=== PATIENT | female | born 1970 | race Caucasian/White ===

== ENCOUNTER 2023-12-09 15:02 | Emergency (ER) | payer SELFPAY ==
[2023-12-09] VITALS (9 sets, daily range): BP systolic 113–175; BP diastolic 61–105; PULSE 74–101; RESP 16–18; TEMP 36.6; O2SAT 95–99; BMI 26.6
--- NOTE | 2023-12-09 15:23 | [facility].EDGENADL ---
Discharge Plan Disposition Patient Disposition: Home, Self-Care Prescriptions Prescriptions: New prochlorperazine maleate [Compazine] 10 mg tablet 10 mg PO Q6H PRN (Reason: nausea and vomiting) 1 Days Qty: 20 0RF Referrals Follow up/Referrals: Eliseo Chandler [Primary Care Provider] - See instructions Activity Restrictions/Add. Instructions Additional Instructions/Restrictions: Call your family doctor to establish care for this visit to the emergency department and schedule follow-up within 48 hours to ensure improvement. If you have any worsening of your condition or any other concerning signs or symptoms, return to the emergency department or your primary care doctor for further evaluation. For migraine, 1000 mg acetaminophen, 600 mg ibuprofen, 10 mg Compazine, 25 mg Benadryl and drink plenty of fluids with these. If you continue to have symptoms or any other concerning symptoms, return to the ER for further evaluation. Clinical Impressions Clinical Impression: Complicated migraine Instructions Patient Instructions: DI for Numbness/Tingling Discharge ED Provider: Adama Kulkarni General Adult HPI General Chief complaint: Recheck/Abnormal Lab/Rx Stated complaint: tingling/numbness right face down to arm Time Seen by Provider: 12/09/23 15:06 Mode of Arrival: Ambulatory Source of Information: Patient Limitations: No Limitations Description of Symptoms (Recalled from ER Triage Doc. by RN): Patient reports on and off headaches and right sided facial numbness for 2 days. Reports that her blood pressure has been elevated as well. History of Present Illness HPI narrative: 53-year-old female history of migraines presenting with right-sided facial numbness. Patient states that she used to get migraines frequently, changed jobs, does not get them anymore. She states she started getting this headache when she was at work a couple days prior to this visit. Since that time, it has been intermittent, but today is worse. Moderate to severe headache that is bandlike, all around, not associated with vision changes, chest pain, shortness of breath, vomiting, fevers or chills, neck stiffness, or any other concerns. She started having facial numbness that gets worse as her headaches get worse on the right, she believes this may be related to her blood pressure that has been elevated recently. Related Data Previous Rx's Medication Instructions Recorded prochlorperazine maleate 10 mg 10 mg PO Q6H PRN nausea and 12/09/23 tablet (Compazine) vomiting 24 hours #20 tabs Allergies Allergy/AdvReac Type Severity Reaction Status Date / Time No Known Allergies Allergy Verified 12/09/23 15:13 [facility] Disclaimer: The information contained in this section may have been updated after the patient was seen, as this information can be updated by other users. Social History Smoking Status: Never smoker alcohol intake: never current occupational status: employed Travel in the last 8 weeks: None ROS Obtained: Yes All systems reviewed & no additional complaints except as documented Physical Exam General General appearance: alert and in no apparent distress Head Head exam: atraumatic and normocephalic Eye Eye exam: Present normal appearance, PERRL and EOMI ENT ENT exam: Present mucous membranes moist Neck Neck exam: Present normal inspection, full ROM and trachea midline Respiratory Respiratory exam: Absent respiratory distress, wheezes, stridor, accessory muscle use or prolonged expiratory phase Cardiovascular Cardiovascular exam: Present normal rhythm Abdominal Exam Abdominal exam: Present soft; Absent distention, tenderness, guarding, rebound or rigidity Extremities Exam Extremities exam: Absent edema Neurological Exam Neurological exam: Present alert, oriented X3, CN II-XII intact and normal gait; Absent motor sensory deficit Skin Skin exam: Present warm and dry; Absent diaphoresis or erythema Medical Decision Making Medical Records Medical records reviewed: Yes I reviewed the patient's medical records. Tom Inquiry Pt receiving controlled substance: No Tom was queried for this patient: No Vital Signs: 12/09/23 15:04 12/09/23 15:08 12/09/23 15:20 Temperature 97.9 F Temperature Source Oral Pulse Rate 101 H 89 Pulse Rate [Radial] 100 H Respiratory Rate 16 Blood Pressure 164/105 H 175/94 H Blood Pressure [Right Arm] 164/105 H Blood Pressure Mean 117 119 Blood Pressure Mean [Right Arm] 124 Blood Pressure Source [Right Arm] Automatic Cuff Blood Pressure Position [Right Arm] Sitting 02 Sat by Pulse Oximetry 99 96 97 Oxygen Delivery Method Room Air 12/09/23 15:40 12/09/23 16:00 12/09/23 16:30 Temperature Temperature Source Pulse Rate 87 85 84 Pulse Rate [Radial] Respiratory Rate Blood Pressure 138/77 128/64 116/67 Blood Pressure [Right Arm] Blood Pressure Mean Blood Pressure Mean [Right Arm] Blood Pressure Source [Right Arm] Blood Pressure Position [Right Arm] 02 Sat by Pulse Oximetry 95 97 96 Oxygen Delivery Method Room Air Room Air 12/09/23 16:40 12/09/23 17:01 12/09/23 17:59 Temperature 97.9 F Temperature Source Pulse Rate 74 80 86 Pulse Rate [Radial] Respiratory Rate 18 Blood Pressure 117/61 113/66 121/66 Blood Pressure [Right Arm] Blood Pressure Mean Blood Pressure Mean [Right Arm] Blood Pressure Source [Right Arm] Blood Pressure Position [Right Arm] 02 Sat by Pulse Oximetry 96 95 Oxygen Delivery Method Room Air Room Air Room Air Lab Data Lab Results 12/09/23 15:25: WBC 8.0, RBC 4.49, Hgb 14.0, Hct 41.1, MCV 91.5, MCH 31.1, MCHC 34.0, RDW 14.2, Plt Count 213, MPV 8.3, Neut % (Auto) 63.6, Lymph % (Auto) 29.3, [place] % (Auto) 4.4, Eos % (Auto) 2.2, Baso % (Auto) 0.5, Neut # (Auto) 5.1, Lymph # (Auto) 2.3, [place] # (Auto) 0.4, Eos # (Auto) 0.2, Baso # (Auto) 0.0, ESR 17, Sodium 144, Potassium 3.7, Chloride 106, Carbon Dioxide 31 H, Anion Gap 10.7, BUN 8, Creatinine 0.80, Estimated Creat Clear 98, Estimated GFR 76, Est GFR ( Amer) 92, Glucose 91, Calcium 8.9, Magnesium 2.1, Total Bilirubin 0.5, AST 39 H, ALT 28, Alkaline Phosphatase 90, Troponin I < 0.01, C-Reactive Protein 8.4 H, Total Protein 7.4, Albumin 4.6, Globulin 2.8, Albumin/Globulin Ratio 1.6 12/09/23 15:25 12/09/23 15:25 Orders (Tests/Meds): ED MEDICATIONS Discontinued Medications Generic Name Dose Route Start Last Admin Trade Name Freq PRN Reason Stop Dose Admin Acetaminophen 1,000 mg 12/09/23 15:20 12/09/23 15:34 Acetaminophen 500mg Tab PO 12/09/23 15:21 1,000 mg ONCE ONE Administration Dexamethasone Sodium Phosphate 10 mg 12/09/23 15:20 12/09/23 15:35 Dexamethasone 4mg/Ml 1ml Vial IV 12/09/23 15:21 10 mg ONCE ONE Administration Diphenhydramine HCl 25 mg 12/09/23 15:20 12/09/23 15:35 Diphenhydramine 50mg/Ml Vial IV 12/09/23 15:21 25 mg ONCE ONE Administration Sodium Chloride 1,000 mls @ 999 mls/hr 12/09/23 15:20 12/09/23 15:34 Sod Chlor 0.9% 1000ml Bag IV 12/09/23 16:20 999 mls/hr .Q1H1M ONE Administration Ketorolac Tromethamine 15 mg 12/09/23 15:20 12/09/23 15:36 Ketorolac 30mg/Ml Vial IV 12/09/23 15:21 15 mg ONCE ONE Administration Prochlorperazine Edisylate 10 mg 12/09/23 15:20 12/09/23 15:36 Prochlorperazine 10mg/2ml Vial IV 12/09/23 15:21 10 mg ONCE ONE Administration ORDERS Category Date Time Status CRP [C-Reactive Protein] Stat Lab 12/09/23 15:25 Completed Complete Blood Count Auto Diff Stat Lab 12/09/23 15:25 Completed Comprehensive Metabolic Panel Stat Lab 12/09/23 15:25 Completed ESR [Erythrocyte Sedimentation Rate] Stat Lab 12/09/23 15:25 Completed Magnesium Stat Lab 12/09/23 15:25 Completed Troponin I Q3H Lab 12/09/23 21:30 Ordered Troponin I Stat Lab 12/09/23 15:25 Completed ECG initial [place] Routine Y 12/09/23 15:46 Completed Medical Decision Narrative: 53-year-old female history of migraines presenting with right-sided facial numbness. Patient states that she used to get migraines frequently, changed jobs, does not get them anymore. She states she started getting this headache when she was at work a couple days prior to this visit. Since that time, it has been intermittent, but today is worse. Moderate to severe headache that is bandlike, all around, not associated with vision changes, chest pain, shortness of breath, vomiting, fevers or chills, neck stiffness, or any other concerns. She started having facial numbness that gets worse as her headaches get worse on the right, she believes this may be related to her blood pressure that has been elevated recently. History was obtained via conversation with patient. On arrival, patient hemodynamically stable, alert, oriented x4, appropriate, GCS 15, moving all extremities spontaneously, pupils equal and reactive to light. Full physical exam performed and significant for neurologically intact including cranial nerve, cerebellar, motor and sensory exam other than cranial nerve V on the right side. Sensation intact, but decreased as compared to the left. Cardiac exam within normal limits. Differential includes headache, complex migraine, symptomatic hypertension, CVA, dissection, vasculitis, among others. Patient was given fluids, acetaminophen, Decadron, Benadryl, Compazine, Toradol for symptomatic management and correction of underlying abnormalities. It was explained to patient that this could be complex migraine and we will trial medications to see if this alleviates her numbness symptoms prior to CT of the head, she was agreeable to this plan given outside of any kind of treatment window. Workup independently interpreted and significant for nonactionable CBC or chemistry. Troponin negative. Independent interpretation of EKG shows sinus rhythm 79 beats a minute. No ST or T wave changes concerning for acute ischemia. DC, QRS, QT intervals within normal limits. [place] normal. Patient was placed in observation beginning at 1520 in order to give medications and rule out need for CT imaging and determine need for admission versus home-going. The patient was provided medications, monitoring while awaiting results. Independent interpretation of results demonstrated normal findings as above. On reevaluation, On reevaluation, patient resting comfortably in bed. No longer having numbness on the side of her face. Hypertension resolved, headache also resolved. Given patient presentation, workup, history, this most likely represents complex migraine. Conversation was had with patient regarding home-going and if return of symptoms that are persistent, come back to the emergency department, she voiced understanding. Was given oral headache medications for home-going as needed. At this time, I feel patient is appropriate for discharge. Total observation time 2 hours. Because patient at baseline without signs or symptoms of clinical decompensation, deemed appropriate for discharge. Results were relayed to patient who voiced understanding and were agreeable to outpatient management and follow up. At the time of discharge the patient was hemodynamically stable, tolerating PO, and mobilizing appropriately.. Critical Care Critical Care Time Critical Care Time: No
[2023-12-09 15:34] LABS: Basophils % 0.5 % (0.1-2.0); Eosinophils # 0.2 K/mm3 (0.0-0.4); Eosinophils % 2.2 % (0.1-12.0); Hematocrit 41.1 % (37.0-47.0); Lymphocytes # 2.3 K/mm3 (0.7-4.5); Lymphocytes % 29.3 % (10-50); Mean Corpuscular Hemoglobin 31.1 pg (27.0-31.2); Mean Corpuscular Volume 91.5 fl (81-99); Mean Platelet Volume 8.3 fl (7.4-10.4); Monocytes # 0.4 K/mm3 (0.1-1.0); Monocytes % 4.4 % (1.7-9.3); Neutrophils # 5.1 K/mm3 (1.8-7.8); Neutrophils % 63.6 % (37.0-80.0); Platelet Count 213 K/mm3 (142-424); Red Blood Count 4.49 M/mm3 (4.20-5.40); Red Cell Distribution Width 14.2 % (11.5-17.5)
[2023-12-09] MEDS: 0.9 % SODIUM CHLORIDE 1000ML 1,000 ML 999 ML IV (15:34)
[2023-12-09] MEDS: ACETAMINOPHEN 500MG TAB 1000 MG PO (15:34)
[2023-12-09] MEDS: diphenhydrAMINE 50MG/ML VIAL 25 MG IV (15:35)
[2023-12-09] MEDS: DEXAMETHASONE 4MG/ML 1ML VIAL 10 MG IV (15:35)
[2023-12-09] MEDS: PROCHLORPERAZINE 10MG/2ML VIAL 10 MG IV (15:36)
[2023-12-09] MEDS: KETOROLAC 30MG/ML VIAL 15 MG IV (15:36)
--- NOTE | 2023-12-09 15:46 | ECG_ITS ---
APPROVED REPORT Exam: Resting ECG HR:79 bpm ECG Measurements Heart Rate 79 AXES OH 127 P 48 QRSd 93 QRS 60 QT 351 T 55 QTc 385 Conclusion SINUS RHYTHM NORMAL ECG UNCONFIRMED REPORT Electronically signed by : Eusebio Vides MD 12/10/2023 08:13:20
[2023-12-09 15:53] LABS: Alanine Aminotransferase 28 U/L (12-78); Albumin Level 4.6 g/dl (3.5-5.0); Albumin/Globulin Ratio 1.6 (1.1-1.8); Alkaline Phosphatase 90 U/L (38-126); Anion Gap 10.7 mEq/L (5-15); Aspartate Amino Transferase 39 U/L (14-36); Bilirubin,Total 0.5 mg/dl (0.2-1.3); Blood Urea Nitrogen 8 mg/dl (7-17); Calcium 8.9 mg/dl (8.4-10.2); Carbon Dioxide 31 mmol/L (22.0-30.0); Chloride 106 mmol/L (98-107); Creatinine Clearance Estimated 98 mL/min (50-200); Estimated Glomerular Filt Rate 76 ml/min (>60); GFR (African American) 92 ML/MIN (>60); Globulin 2.8 g/dL (1.3-3.2); Glucose 91 mg/dl (74-100); Potassium 3.7 mmoL/L (3.5-5.1); Sodium 144 mmol/L (136-145); Total Protein,Serum 7.4 g/dl (6.3-8.2)
[2023-12-09 15:59] LABS: C-Reactive Protein 8.4 mg/L (0-4)
[2023-12-09 16:04] LABS: Erythrocyte Sedimentation Rate 17 mm/hr (0-30)
[2023-12-09 16:05] LABS: Magnesium 2.1 mg/dl (1.6-2.3); Troponin I < 0.01 ng/ml (0.00-0.034)
== END 2023-12-09 18:00 | disposition home or self-care (01) ==
PROVIDERS: Emergency Provider Emergency Medicine; PCP Internal Medicine
DX: G43.809 Other migraine, not intractable, without status migrainosus (principal); R03.0 Elevated blood-pressure reading, without diagnosis of hypertension
CPT/HCPCS: 80053; 83735; 84484; 85025; 85651; 86140; 93005; 96361; 96374; 96375; 99284